=== PATIENT | female | born 1945 | race Caucasian/White ===

== ENCOUNTER 2016-09-29 10:25 | Inpatient (IN) | payer MEDICARE, OTHER ==
[~2016-09-29] VITALS: Ht 154.9 cm; Wt 98.0 kg
[2016-09-29] MEDS ORDERED: METF10002 PO (11:19)
[2016-09-29] MEDS ORDERED: METH500T97 PO (11:19)
[2016-09-29] MEDS ORDERED: ATOR40TA78 PO (11:19)
[2016-09-29] MEDS ORDERED: LISI5TAB7 PO (11:19)
[2016-09-29] MEDS ORDERED: ALPR-475 PO (11:19)
[2016-09-29] MEDS ORDERED: CARV12.543 PO (11:19)
[2016-09-29] MEDS ORDERED: SERT50TA5 PO (11:19)
[2016-09-29] MEDS ORDERED: OXYC-302 PO (11:19)
[2016-09-29] MEDS ORDERED: AMIT100T PO (11:19)
[2016-09-29 12:21] LABS: ASPARTATE AMINO TRANSFERASE 27 U/L (15-37); BLOOD UREA NITROGEN 49 mg/dL (7-18)
[2016-09-29] MEDS ORDERED: SODIUM CHLORIDE FLUSH 10ML SYR IVF ONE (13:00)
[2016-09-29] MEDS ORDERED: SODIUM CHLORIDE 0.9% 1,000ML IVBOLUS ONE (13:00)
[2016-09-29] MEDS ORDERED: KETOROLAC 30 MG/1 ML IVPush ONE (13:30)
[2016-09-29] MEDS ORDERED: KETOROLAC 30 MG/1 ML ONE (14:01)
[2016-09-29] MEDS ORDERED: ONDANSETRON 2MG/ML, 2ML IVPush ONE (14:30)
[2016-09-29] MEDS ORDERED: methylPREDNISolone SOD SUCC 125 MG/2 ML IVPush ONE (14:30)
[2016-09-29] MEDS ORDERED: methylPREDNISolone SOD SUCC 125 MG/2 ML ONE (14:31)
[2016-09-29] MEDS ORDERED: HYDROmorphone 1 MG/ML, 1ML ONE ×2 (14:31→15:04)
[2016-09-29] MEDS: HYDROmorphone 1 MG/ML, 1ML IVPush PRN ×2 (14:36→15:05)
[2016-09-29] MEDS ORDERED: ONDANSETRON 2MG/ML, 2ML ONE (14:36)
[2016-09-29] MEDS ORDERED: SODIUM CHLORIDE FLUSH 10ML SYR IVF PRN (15:00)
[2016-09-29] MEDS ORDERED: METHOCARBAMOL 500 MG TABLET PO PRN (15:30)
[2016-09-29] MEDS ORDERED: ACETAMINOPHEN 325 MG TABLET PO PRN (15:30)
[2016-09-29] MEDS ORDERED: TEMAZEPAM 15 MG CAPSULE PO PRN (15:30)
[2016-09-29] MEDS ORDERED: HYDROmorphone 2 MG/ML, 1ML IVPush PRN (15:30)
[2016-09-29] MEDS ORDERED: BISACODYL 10 MG SUPP PR PRN (15:30)
[2016-09-29] MEDS ORDERED: POLYETHYLENE GLYCOL 17 GM PACKET PO PRN (15:30)
[2016-09-29] MEDS ORDERED: ONDANSETRON 2MG/ML, 2ML IVPush PRN (15:30)
[2016-09-29] MEDS: INSULIN ASPART 100 UNITS/ML, PEN SQ-INSULIN SCH ×2 (16:00→21:44)
[2016-09-29] MEDS: HEPARIN 5,000 UNITS/ML, 1ML SQ SCH (17:00)
[2016-09-29] MEDS: GABAPENTIN 100 MG CAPSULE PO SCH ×2 (18:30→20:59)
[2016-09-29] MEDS: metFORMIN 850 MG TABLET PO SCH (18:30)
[2016-09-29] MEDS: COLCHICINE 0.6 MG TABLET PO SCH (18:31)
[2016-09-29] MEDS: SODIUM CHLORIDE 0.9% 1,000 ML IV SCH ×2 (18:31→23:08)
[2016-09-29 19:12] VITALS: BP 126/73
[2016-09-29 20:13] LABS: PATH.CAST-FLAG NOT PRESENT; SPERM-FLAG NOT PRESENT; SRC-FLAG NOT PRESENT; XTAL-FLAG NOT PRESENT; YLC-FLAG NOT PRESENT
[2016-09-29] MEDS: ATORVASTATIN 40 MG TABLET PO SCH (20:59)
[2016-09-29] MEDS: AMITRIPTYLINE 100 MG TABLET PO SCH (20:59)
[2016-09-29] MEDS: CARVEDILOL 12.5 MG TABLET PO SCH (20:59)
[2016-09-29] MEDS: INSULIN DETEMIR 100 UNITS/ML, PEN SQ-INSULIN SCH (21:45)
[2016-09-29] MEDS: CEFTRIAXONE PMX 1GM/50ML 50 ML IV SCH (21:47)
[2016-09-30] MEDS: HEPARIN 5,000 UNITS/ML, 1ML SQ SCH ×3 (01:01→16:49)
[2016-09-30 03:03] VITALS: BP 132/80
[2016-09-30 04:47] LABS: BLOOD UREA NITROGEN 46 mg/dL (7-18)
[2016-09-30 04:52] LABS: ASPARTATE AMINO TRANSFERASE 19 U/L (15-37)
[2016-09-30] MEDS: GABAPENTIN 100 MG CAPSULE PO SCH ×4 (05:39→21:43)
[2016-09-30] MEDS: SODIUM CHLORIDE 0.9% 1,000 ML IV SCH (05:39)
[2016-09-30] MEDS: INSULIN DETEMIR 100 UNITS/ML, PEN SQ-INSULIN SCH ×3 (07:59→21:51)
[2016-09-30] MEDS: INSULIN ASPART 100 UNITS/ML, PEN SQ-INSULIN SCH ×4 (07:59→21:51)
[2016-09-30] MEDS: COLCHICINE 0.6 MG TABLET PO SCH (08:02)
[2016-09-30] MEDS: metFORMIN 850 MG TABLET PO SCH ×2 (08:02→16:49)
[2016-09-30] MEDS: SERTRALINE 50MG TABLET PO SCH (08:02)
[2016-09-30] MEDS: CARVEDILOL 12.5 MG TABLET PO SCH ×2 (08:02→21:43)
[2016-09-30] MEDS: LISINOPRIL 5 MG TABLET PO SCH (08:02)
[2016-09-30 08:03] VITALS: BP 137/78
[2016-09-30] MEDS ORDERED: ERGOCALCIFEROL 50,000 UNIT CAPSULE PO SCH (09:30)
[2016-09-30] MEDS: SENNA/DOCUSATE TABLET PO SCH (10:38)
[2016-09-30 14:08] VITALS: BP 124/72
[2016-09-30] MEDS: FERROUS GLUCONATE 324 MG TABLET PO SCH (16:49)
[2016-09-30 19:14] VITALS: BP 128/74
[2016-09-30] MEDS: CEFTRIAXONE PMX 1GM/50ML 50 ML IV SCH (21:43)
[2016-09-30] MEDS: ATORVASTATIN 40 MG TABLET PO SCH (21:43)
[2016-09-30] MEDS: AMITRIPTYLINE 100 MG TABLET PO SCH (21:43)
[2016-10-01] MEDS: HEPARIN 5,000 UNITS/ML, 1ML SQ SCH ×3 (02:15→17:18)
[2016-10-01 03:47] VITALS: BP_SYST 120; BP_SYST 124; BP_DIAS 73
[2016-10-01 04:41] LABS: BLOOD UREA NITROGEN 35 mg/dL (7-18)
[2016-10-01] MEDS: GABAPENTIN 100 MG CAPSULE PO SCH ×4 (06:26→20:41)
[2016-10-01 07:37] VITALS: BP 136/81
[2016-10-01] MEDS: INSULIN ASPART 100 UNITS/ML, PEN SQ-INSULIN SCH ×4 (08:24→20:50)
[2016-10-01] MEDS: FERROUS GLUCONATE 324 MG TABLET PO SCH ×2 (08:35→17:17)
[2016-10-01] MEDS: metFORMIN 850 MG TABLET PO SCH ×2 (08:35→17:19)
[2016-10-01] MEDS: COLCHICINE 0.6 MG TABLET PO SCH (08:35)
[2016-10-01] MEDS: CARVEDILOL 12.5 MG TABLET PO SCH ×2 (08:36→20:41)
[2016-10-01] MEDS: LISINOPRIL 5 MG TABLET PO SCH (08:37)
[2016-10-01] MEDS: SERTRALINE 50MG TABLET PO SCH (08:37)
[2016-10-01] MEDS: INSULIN DETEMIR 100 UNITS/ML, PEN SQ-INSULIN SCH ×2 (08:38→20:51)
[2016-10-01] MEDS: SENNA/DOCUSATE TABLET PO SCH (08:39)
[2016-10-01 13:00] VITALS: BP 128/69
[2016-10-01 20:20] VITALS: BP 183/84
[2016-10-01] MEDS: ATORVASTATIN 40 MG TABLET PO SCH (20:41)
[2016-10-01] MEDS: AMITRIPTYLINE 100 MG TABLET PO SCH (20:41)
[2016-10-01] MEDS: CEFTRIAXONE PMX 1GM/50ML 50 ML IV SCH (20:42)
[2016-10-01] MEDS: ENALAPRILAT 1.25 MG/ML, 2ML IVPush PRN (20:42)
[2016-10-02] MEDS: HEPARIN 5,000 UNITS/ML, 1ML SQ SCH (02:29)
[2016-10-02 02:31] VITALS: BP 164/97
[2016-10-02] MEDS: ENALAPRILAT 1.25 MG/ML, 2ML IVPush PRN (02:32)
[2016-10-02] MEDS: GABAPENTIN 100 MG CAPSULE PO SCH ×4 (05:00→20:05)
[2016-10-02 05:59] LABS: BLOOD UREA NITROGEN 21 mg/dL (7-18)
[2016-10-02] MEDS: INSULIN ASPART 100 UNITS/ML, PEN SQ-INSULIN SCH ×4 (07:00→20:09)
[2016-10-02 07:18] VITALS: BP 176/81
[2016-10-02] MEDS: metFORMIN 850 MG TABLET PO SCH ×2 (07:49→16:57)
[2016-10-02] MEDS: FERROUS GLUCONATE 324 MG TABLET PO SCH ×2 (07:49→16:57)
[2016-10-02] MEDS: COLCHICINE 0.6 MG TABLET PO SCH (07:50)
[2016-10-02] MEDS: SERTRALINE 50MG TABLET PO SCH (07:51)
[2016-10-02] MEDS: CARVEDILOL 12.5 MG TABLET PO SCH ×2 (07:51→20:05)
[2016-10-02] MEDS: INSULIN DETEMIR 100 UNITS/ML, PEN SQ-INSULIN SCH ×2 (07:52→20:09)
[2016-10-02] MEDS: SENNA/DOCUSATE TABLET PO SCH (07:52)
[2016-10-02] MEDS: LISINOPRIL 10 MG TABLET PO SCH ×2 (08:55→20:05)
[2016-10-02] MEDS: ENOXAPARIN 40 MG/0.4 ML SQ SCH (08:55)
[2016-10-02 12:54] VITALS: BP 143/68
[2016-10-02] MEDS: CEFTRIAXONE PMX 1GM/50ML 50 ML IV SCH (18:19)
[2016-10-02 18:38] VITALS: BP 166/82
[2016-10-02] MEDS: ATORVASTATIN 40 MG TABLET PO SCH (20:05)
[2016-10-02] MEDS: AMITRIPTYLINE 100 MG TABLET PO SCH (20:05)
[2016-10-03] VITALS (8 sets, daily range): BP systolic 136–201; BP diastolic 78–95
[2016-10-03] MEDS: ENALAPRILAT 1.25 MG/ML, 2ML IVPush PRN (02:32)
[2016-10-03 03:57] LABS: BLOOD UREA NITROGEN 19 mg/dL (7-18)
[2016-10-03] MEDS: GABAPENTIN 100 MG CAPSULE PO SCH ×4 (06:03→21:02)
[2016-10-03] MEDS: SENNA/DOCUSATE TABLET PO SCH (09:00)
[2016-10-03] MEDS: ENOXAPARIN 40 MG/0.4 ML SQ SCH (09:31)
[2016-10-03] MEDS: metFORMIN 850 MG TABLET PO SCH ×2 (09:31→18:36)
[2016-10-03] MEDS: FERROUS GLUCONATE 324 MG TABLET PO SCH ×2 (09:31→18:36)
[2016-10-03] MEDS: COLCHICINE 0.6 MG TABLET PO SCH (09:32)
[2016-10-03] MEDS: CARVEDILOL 12.5 MG TABLET PO SCH ×2 (09:32→21:02)
[2016-10-03] MEDS: LISINOPRIL 10 MG TABLET PO SCH ×2 (09:33→21:02)
[2016-10-03] MEDS: SERTRALINE 50MG TABLET PO SCH (09:34)
[2016-10-03] MEDS: INSULIN DETEMIR 100 UNITS/ML, PEN SQ-INSULIN SCH ×2 (09:43→21:04)
[2016-10-03] MEDS: INSULIN ASPART 100 UNITS/ML, PEN SQ-INSULIN SCH ×4 (09:44→21:04)
[2016-10-03] MEDS ORDERED: CALCIUM CARBONATE 500 MG TAB.CHEW PO PRN (10:30)
[2016-10-03 16:36] LABS: IS PT STATUS REG ER OR PRE ER? NO
[2016-10-03] MEDS: CEFTRIAXONE PMX 1GM/50ML 50 ML IV SCH (18:36)
[2016-10-03] MEDS ORDERED: ENALAPRILAT 1.25 MG/ML, 2ML IVPush PRN (18:48)
[2016-10-03] MEDS ORDERED: NITROGLYCERIN 0.4 MG/SPRAY SL PRN (19:00)
[2016-10-03] MEDS ORDERED: NITROGLYCERIN 0.4 MG BOTTLE (25 TABS) SL PRN (19:00)
[2016-10-03] MEDS: AMITRIPTYLINE 100 MG TABLET PO SCH (21:02)
[2016-10-03] MEDS: ATORVASTATIN 40 MG TABLET PO SCH (21:02)
[2016-10-03 21:45] LABS: IS PT STATUS REG ER OR PRE ER? NO
[2016-10-04 01:12] VITALS: BP 166/84
[2016-10-04] MEDS: GABAPENTIN 100 MG CAPSULE PO SCH ×3 (05:05→16:10)
[2016-10-04 06:40] LABS: BLOOD UREA NITROGEN 16 mg/dL (7-18)
[2016-10-04 06:44] LABS: IS PT STATUS REG ER OR PRE ER? NO
[2016-10-04] MEDS: INSULIN ASPART 100 UNITS/ML, PEN SQ-INSULIN SCH ×3 (07:00→16:10)
[2016-10-04] MEDS: FERROUS GLUCONATE 324 MG TABLET PO SCH ×2 (07:26→16:13)
[2016-10-04] MEDS: CARVEDILOL 12.5 MG TABLET PO SCH (07:26)
[2016-10-04] MEDS: SENNA/DOCUSATE TABLET PO SCH (07:26)
[2016-10-04] MEDS: LISINOPRIL 10 MG TABLET PO SCH (07:26)
[2016-10-04] MEDS: COLCHICINE 0.6 MG TABLET PO SCH (07:26)
[2016-10-04] MEDS: SERTRALINE 50MG TABLET PO SCH (07:26)
[2016-10-04 07:46] VITALS: BP 148/92
[2016-10-04] MEDS ORDERED: REGADENOSON 0.4 MG/5 ML SYRINGE ONE (08:44)
[2016-10-04] MEDS ORDERED: ENOXAPARIN 40 MG/0.4 ML SQ SCH (09:30)
[2016-10-04] MEDS: metFORMIN 850 MG TABLET PO SCH ×2 (11:41→16:13)
[2016-10-04] MEDS: INSULIN DETEMIR 100 UNITS/ML, PEN SQ-INSULIN SCH (11:44)
[2016-10-04 14:44] VITALS: BP 141/88
[2016-10-04] MEDS ORDERED: GABA100C8 PO (16:09)
[2016-10-04] MEDS ORDERED: COLC0.6T37 PO (16:09)
[2016-10-04] MEDS ORDERED: CALC200T24 PO (16:09)
[2016-10-04] MEDS ORDERED: ERGO500017 PO (16:09)
[2016-10-04] MEDS ORDERED: LISI-167 PO (16:09)
[2016-10-04] MEDS ORDERED: TRAM50TA2 PO (16:09)
[2016-10-04] MEDS ORDERED: FERR325T16 PO (16:09)
[2016-10-04] MEDS ORDERED: PRED20TA PO (16:09)
[2016-10-04] MEDS ORDERED: INSU100I28 SQ-INSULIN (16:09)
== END 2016-10-04 18:02 | DRG 545 ==
LOC: ED 12:35 → 3NW 14:54 → 5SO 10-03 12:22
PROVIDERS: ADMIT Internal Medicine; ATTEND Internal Medicine
DX: M06.9 Rheumatoid arthritis, unspecified (principal); E43 Unspecified severe protein-calorie malnutrition; N39.0 Urinary tract infection, site not specified; E87.1 Hypo-osmolality and hyponatremia; Z68.41 Body mass index [BMI] 40.0-44.9, adult; D50.9 Iron deficiency anemia, unspecified; B96.20 Unspecified Escherichia coli [E. coli] as the cause of diseases classified elsewhere; D63.8 Anemia in other chronic diseases classified elsewhere; D75.89 Other specified diseases of blood and blood-forming organs; E11.65 Type 2 diabetes mellitus with hyperglycemia; E55.9 Vitamin D deficiency, unspecified; E66.01 Morbid (severe) obesity due to excess calories; E78.5 Hyperlipidemia, unspecified; F32.9 Major depressive disorder, single episode, unspecified; F41.1 Generalized anxiety disorder; Z79.899 Other long term (current) drug therapy; G89.29 Other chronic pain; I10 Essential (primary) hypertension; E11.42 Type 2 diabetes mellitus with diabetic polyneuropathy; K21.9 Gastro-esophageal reflux disease without esophagitis; Z86.73 Personal history of transient ischemic attack (TIA), and cerebral infarction without residual deficits; Z95.3 Presence of xenogenic heart valve; Z88.0 Allergy status to penicillin; Z88.6 Allergy status to analgesic agent; Z88.8 Allergy status to other drugs, medicaments and biological substances
CPT/HCPCS: 36415; 71010; 78452; 80048; 80053; 80061; 81001; 82306; 82607; 82728; 82962; 83036; 83540; 83550; 83735; 84439; 84443; 84466; 84484; 84550; 85025; 85651; 86141; 87040; 87077; 87086; 87186; 87324; 93005; 93017; 96361; 96374; 96375; J0696; J1170; J1644; J1650; J1815; J1885; J2405; J2785; A9502; C9898; J2930; J7030; J7512

== ENCOUNTER 2017-02-27 09:01 | Inpatient (IN) | payer MEDICARE ==
[~2017-02-27] VITALS: Ht 154.9 cm; Wt 97.0 kg
[~2017-02-27 09:01] MED LIST: ALPR-475 PO; AMIT100T PO; ASPI-496 PO; ATOR40TA78 PO; CALC200T24 PO; CARV12.543 PO; COLC0.6T37 PO; ERGO500017 PO; FERR325T16 PO; FURO-92 PO; GABA-826 PO; INSU100I28 SQ-INSULIN; LISI-167 PO; LISI5TAB7 PO; METF10002 PO; METH500T97 PO; MULT1CAP19 PO; OXYC-302 PO; POTA10TA5 PO; PRED20TA PO; SERT50TA5 PO; TRAM50TA2 PO; VITA150T PO; iron PO
[2017-02-27] MEDS ORDERED: SODIUM CHLORIDE FLUSH 10ML SYR IVF ONE (09:30)
[2017-02-27] MEDS ORDERED: NITROGLYCERIN SINGLE TAB 0.4 MG SL PRN (09:30)
[2017-02-27] MEDS ORDERED: ONDANSETRON 2MG/ML, 2ML IVPush ONE (09:30)
[2017-02-27 09:46] LABS: HEMATOCRIT 37.5 % (34.6-47.8); WHITE BLOOD COUNT 8.7 x10^3/uL (3.4-10)
[2017-02-27 09:57] LABS: ASPARTATE AMINO TRANSFERASE 25 U/L (15-37); BLOOD UREA NITROGEN 14 mg/dL (7-18)
[2017-02-27] MEDS ORDERED: HYDROmorphone 1 MG/ML, 1ML ONE ×2 (09:57→11:48)
[2017-02-27] MEDS ORDERED: ONDANSETRON 2MG/ML, 2ML ONE (09:58)
[2017-02-27 10:06] LABS: IS PT STATUS REG ER OR PRE ER? YES
[2017-02-27] MEDS: HYDROmorphone 1 MG/ML, 1ML IVPush PRN ×2 (10:08→12:10)
[2017-02-27] MEDS ORDERED: OMNIPAQUE 350 MG/ML, 100ML BOTTLE ONE (12:03)
[2017-02-27] MEDS ORDERED: SODIUM CHLORIDE FLUSH 10ML SYR IVF PRN (12:30)
[2017-02-27 13:27] VITALS: BP 143/87
[2017-02-27] MEDS ORDERED: morphine SULFATE 10 MG/ML, 1ML IVPush PRN (14:00)
[2017-02-27] MEDS ORDERED: ACETAMINOPHEN 325 MG TABLET PO PRN (14:00)
[2017-02-27] MEDS ORDERED: ONDANSETRON 2MG/ML, 2ML IVPush PRN (14:00)
[2017-02-27] MEDS: INSULIN ASPART 100 UNITS/ML, PEN SQ-INSULIN SCH ×2 (16:00→21:00)
[2017-02-27] MEDS: ENOXAPARIN 40 MG/0.4 ML SQ SCH (16:09)
[2017-02-27] MEDS: GABAPENTIN 100 MG CAPSULE PO SCH ×2 (16:09→22:11)
[2017-02-27] MEDS: FERROUS SULFATE 325 MG TABLET PO SCH (16:09)
[2017-02-27] MEDS ORDERED: XELJANZ 11 MG PO SCH (16:30)
[2017-02-27] MEDS: HYDROcodone/APAP 5/325 TABLET PO PRN ×2 (17:47→22:24)
[2017-02-27 19:41] VITALS: BP 110/65
[2017-02-27 20:54] LABS: IS PT STATUS REG ER OR PRE ER? NO
[2017-02-27] MEDS: INSULIN DETEMIR 100 UNITS/ML, PEN SQ-INSULIN SCH (21:00)
[2017-02-27] MEDS ORDERED: INSULIN DETEMIR 100 UNITS/ML, PEN SQ-INSULIN SCH (21:00)
[2017-02-27] MEDS: ATORVASTATIN 40 MG TABLET PO SCH (22:10)
[2017-02-27] MEDS: metFORMIN 500 MG TABLET PO SCH (22:10)
[2017-02-27] MEDS: AMITRIPTYLINE 50 MG TABLET PO SCH (22:10)
[2017-02-27] MEDS: CARVEDILOL 12.5 MG TABLET PO SCH (22:10)
[2017-02-27] MEDS: OMEPRAZOLE 20 MG CAPSULE.DR PO SCH (22:11)
[2017-02-27] MEDS: LISINOPRIL 10 MG TABLET PO SCH (22:11)
[2017-02-28 02:56] VITALS: BP 107/64
[2017-02-28 05:06] LABS: IS PT STATUS REG ER OR PRE ER? NO
[2017-02-28] MEDS: GABAPENTIN 100 MG CAPSULE PO SCH ×4 (06:16→21:34)
[2017-02-28] MEDS: INSULIN ASPART 100 UNITS/ML, PEN SQ-INSULIN SCH ×4 (07:00→21:00)
[2017-02-28 08:44] VITALS: BP 93/49
[2017-02-28] MEDS: CARVEDILOL 12.5 MG TABLET PO SCH ×2 (09:00→21:34)
[2017-02-28] MEDS: LISINOPRIL 10 MG TABLET PO SCH ×2 (09:00→21:34)
[2017-02-28] MEDS: FUROSEMIDE 40 MG TABLET PO SCH (09:00)
[2017-02-28] MEDS: metFORMIN 500 MG TABLET PO SCH ×2 (09:00→19:17)
[2017-02-28] MEDS: CHOLECALCIFEROL 1,000 UNIT TABLET PO SCH (09:54)
[2017-02-28] MEDS: ASPIRIN 81 MG TABLET EC PO SCH (09:54)
[2017-02-28] MEDS: SERTRALINE 50MG TABLET PO SCH (09:55)
[2017-02-28] MEDS: OMEPRAZOLE 20 MG CAPSULE.DR PO SCH ×2 (09:56→21:34)
[2017-02-28] MEDS: POTASSIUM CHLORIDE 10 MEQ TABLET.ER PO SCH (09:56)
[2017-02-28] MEDS: FERROUS SULFATE 325 MG TABLET PO SCH (09:57)
[2017-02-28] MEDS: VICTOZA 0.6 MG SQ SCH (09:58)
[2017-02-28] MEDS: HYDROcodone/APAP 5/325 TABLET PO PRN (11:43)
[2017-02-28 11:50] VITALS: BP 140/83
[2017-02-28] MEDS ORDERED: NITROGLYCERIN 0.4 MG BOTTLE (25 TABS) SL ONE (11:57)
[2017-02-28] MEDS ORDERED: NITROGLYCERIN 0.4 MG BOTTLE (25 TABS) SL PRN (12:00)
[2017-02-28 12:03] VITALS: BP 112/80
[2017-02-28 12:10] VITALS: BP 116/77
[2017-02-28] MEDS: MAALOX/HYOSCYAMINE/LIDOCAINE 45 ML BTL PO PRN (14:10)
[2017-02-28] MEDS: ENOXAPARIN 40 MG/0.4 ML SQ SCH (14:10)
[2017-02-28 19:46] VITALS: BP 129/73
[2017-02-28] MEDS: AMITRIPTYLINE 50 MG TABLET PO SCH (21:34)
[2017-02-28] MEDS: ATORVASTATIN 40 MG TABLET PO SCH (21:34)
[2017-02-28] MEDS: INSULIN DETEMIR 100 UNITS/ML, PEN SQ-INSULIN SCH (21:35)
[2017-03-01 01:53] VITALS: BP 119/75
[2017-03-01] MEDS: GABAPENTIN 100 MG CAPSULE PO SCH ×2 (05:46→09:20)
[2017-03-01] MEDS: HYDROcodone/APAP 5/325 TABLET PO PRN (05:46)
[2017-03-01] MEDS: INSULIN ASPART 100 UNITS/ML, PEN SQ-INSULIN SCH ×2 (07:00→12:05)
[2017-03-01 08:49] VITALS: BP 103/69
[2017-03-01] MEDS: LISINOPRIL 10 MG TABLET PO SCH (09:20)
[2017-03-01] MEDS: FERROUS SULFATE 325 MG TABLET PO SCH (09:20)
[2017-03-01] MEDS: FUROSEMIDE 40 MG TABLET PO SCH (09:20)
[2017-03-01] MEDS: metFORMIN 500 MG TABLET PO SCH (09:20)
[2017-03-01] MEDS: SERTRALINE 50MG TABLET PO SCH (09:20)
[2017-03-01] MEDS: POTASSIUM CHLORIDE 10 MEQ TABLET.ER PO SCH (09:20)
[2017-03-01] MEDS: OMEPRAZOLE 20 MG CAPSULE.DR PO SCH (09:20)
[2017-03-01] MEDS: CARVEDILOL 12.5 MG TABLET PO SCH (09:20)
[2017-03-01] MEDS: CHOLECALCIFEROL 1,000 UNIT TABLET PO SCH (09:20)
[2017-03-01] MEDS: ASPIRIN 81 MG TABLET EC PO SCH (09:20)
[2017-03-01] MEDS: VICTOZA 0.6 MG SQ SCH (09:21)
[2017-03-01] MEDS: MAALOX/HYOSCYAMINE/LIDOCAINE 45 ML BTL PO PRN (09:21)
[2017-03-01] MEDS ORDERED: CHOL10003 PO (11:38)
[2017-03-01] MEDS ORDERED: OMEP-110 PO (11:38)
[2017-03-01] MEDS ORDERED: TRAM50TA2 PO (11:38)
[2017-03-01] MEDS ORDERED: Maalox/Hyoscyamine/Lidocaine PO (11:38)
[2017-03-01] MEDS ORDERED: SUCR1TAB33 PO (11:55)
[2017-03-01] MEDS ORDERED: ASPI-650 PO (12:15)
[2017-03-01] MEDS ORDERED: ASPI-621 PO (13:46)
== END 2017-03-01 14:34 | disposition home or self-care (01) | DRG 392 ==
LOC: ED 11:31 → EDIP 12:17 → 5SO 13:02 → DCLOUNGE 03-01 13:55
PROVIDERS: ADMIT Family Medicine; ATTEND Internal Medicine
DX: K21.0 Gastro-esophageal reflux disease with esophagitis (principal); Z68.41 Body mass index [BMI] 40.0-44.9, adult; E11.9 Type 2 diabetes mellitus without complications; I20.0 Unstable angina; M06.9 Rheumatoid arthritis, unspecified; E66.01 Morbid (severe) obesity due to excess calories; R13.10 Dysphagia, unspecified; I10 Essential (primary) hypertension; E78.5 Hyperlipidemia, unspecified; F41.1 Generalized anxiety disorder; M79.7 Fibromyalgia; R79.1 Abnormal coagulation profile; Z79.82 Long term (current) use of aspirin; Z86.73 Personal history of transient ischemic attack (TIA), and cerebral infarction without residual deficits; Z98.84 Bariatric surgery status; Z95.3 Presence of xenogenic heart valve; Z88.0 Allergy status to penicillin; Z88.5 Allergy status to narcotic agent; Z88.8 Allergy status to other drugs, medicaments and biological substances
CPT/HCPCS: 36415; 71010; 71275; 74220; 80053; 81003; 82962; 83690; 83880; 84443; 84484; 85025; 85379; 93005; J1170; J1650; J2405; Q9967; J1815